=== PATIENT | male | born 1965 | race Caucasian/White ===

== ENCOUNTER 2018-05-27 07:22 | Day surgery (SDC) | payer OTHER ==
[~2018-05-27] VITALS: Ht 172.7 cm; Wt 93.0 kg
[2018-05-27] MEDS ORDERED: PREVACID 24HR15 MG PO (07:39)
--- NOTE | 2018-05-27 09:20 | NUR ---
05/27/18 0920 Julianne Santos 0907-PATIENT ARRIVED TO PACU ON 2L NC AWAKE DROWSY DENIES PAIN OR NAUSEA. LAYING LEFT LATERAL. ABDOMEN SOFT. 0920-PATIENT AWAKE DROWSY TOLERATING SIPS OF WATER. DENIES PAIN OR NAUSEA.
--- NOTE | 2018-05-27 16:51 | OR ---
[facility] [address] [place], [place] [address] Signed DATE OF OPERATION: 05/27/2018 SURGEON: Anitha Villatoro MD PREOPERATIVE DIAGNOSIS: Screening. POSTOPERATIVE DIAGNOSIS: Minimal to moderate internal hemorrhoids. PROCEDURE PERFORMED: Colonoscopy without biopsy. ESTIMATED BLOOD LOSS: None. INDICATIONS: Qamar is a 52-year-old gentleman, asked to see me for his initial screening colonoscopy. He has a family history of colon cancer or polyps. He describes some mild pruritus ani. Otherwise, no lower GI complaints. I met with Qamar in the office and we reviewed that in detail. I went over pruritus ani with him. We also reviewed colonoscopy in detail. He understands the nature of the test along with the risks including, but not limited to gas bloating, crampy abdominal pain, bleeding, perforation, requiring surgery, and missed diagnosis. We also reviewed the need for IV conscious sedation. He has expressed understanding and would like to proceed. PROCEDURE NOTE: Qamar was taken into our endoscopy suite and placed in the left lateral decubitus position. He was given IV sedation with 7 mg of Versed and 100 mcg of fentanyl. A digital rectal exam was performed. He has several small external anal skin tags. He has good sphincter tone. The skin is a little pale consistent with pruritus ani. His prostate gland is not particularly enlarged, but it is just a little bit indurated. It is very mild. The adult colonoscope was introduced and advanced all around into the cecum under direct visualization of camera without difficulty. His prep was excellent. The scope was then slowly withdrawn. We saw no pathology throughout the entire colon or rectum. Upon retroflexion of scope, he has minimal to moderate internal hemorrhoids. After this, the gas was suctioned out and the colonoscope removed. Qamar tolerated the procedure quite well. RECOMMENDATIONS: Electronically Signed By: ANITHA VILLATORO MD 05/27/18 1651 PATIENT NAME: FAISAL III,FOOTE MARIBEL OPERATIVE REPORT DATE OF : 69 REPORT #: [id number] PHYSICIAN: ANITHA VILLATORO MD PCP: AYO CATALAN MD REPORT IS CONFIDENTIAL AND NOT TO BE RELEASED WITHOUT AUTHORIZATION [facility] [address] [place], [place] [address] Signed I will see Foote back in my office in 10 years for repeat colonoscopy. Anitha Villatoro MD ALB/MODL /[id number] cc: MD Anitha Nguyen MD Copies: AYO CATALAN MD, ANDREW L MD ~ Electronically Signed By: ANITHA VILLATORO MD 05/27/18 1651 PATIENT NAME: QAMAR MALONE III OPERATIVE REPORT DATE OF : 69 REPORT #: [id number] PHYSICIAN: ANITHA VILLATORO MD PCP: AYO CATALAN MD REPORT IS CONFIDENTIAL AND NOT TO BE RELEASED WITHOUT AUTHORIZATION
== END 2018-05-27 09:51 | disposition home or self-care (01) ==
LOC: OPS 07:22 → DS 07:22 → OPS 09:00 → DS 09:00 → OPS 09:51
PROVIDERS: Colon & Rectal Surgery
PROC: 0DJD8ZZ Inspection of Lower Intestinal Tract, Via Natural or Artificial Opening Endoscopic (ICD-10-PCS; principal; 2018-05-27 09:00)
DX: Z12.11 Encounter for screening for malignant neoplasm of colon (principal); K64.8 Other hemorrhoids; K64.4 Residual hemorrhoidal skin tags; I10 Essential (primary) hypertension; G47.30 Sleep apnea, unspecified; Z79.899 Other long term (current) drug therapy
CPT/HCPCS: G0500; J2250; J3010; J7120

== ENCOUNTER 2019-07-10 17:14 | Emergency (ER) | payer OTHER ==
[~2019-07-10] VITALS: Ht 172.7 cm; Wt 93.0 kg
[~2019-07-10 17:14] MED LIST: PREVACID 24HR15 MG PO
[2019-07-10] MEDS ORDERED: ONDANSETRON ODT8 MG PO (18:59)
== END 2019-07-10 19:05 | disposition home or self-care (01) ==
LOC: ED 17:14
DX: S06.0X1A Concussion with loss of consciousness of 30 minutes or less, initial encounter (principal); S01.01XA Laceration without foreign body of scalp, initial encounter; W18.30XA Fall on same level, unspecified, initial encounter
CPT/HCPCS: 70450; 90471; 90715; 99284-25

== ENCOUNTER 2021-04-06 06:15 | Day surgery (SDC) | payer OTHER ==
[~2021-04-06] VITALS: Ht 172.7 cm; Wt 93.2 kg
[~2021-04-06 06:15] MED LIST changes: +BRAIN MIGHT-DH1 EACH PO; +DORZOLAMIDE-TIM10 ML; +FISH OIL 1,0001 EAC8 PO; +GLUCOSAMINE CO1 EACH PO; +K-TAB ER20 MEQ PO; +LISINOPRIL-HCT1 EACH PO; +LUCENTIS0.3 MG/0.1 IO; +ONDANSETRON ODT8 MG PO; +OSTERA TABLET1 EACH PO; +PAN-C 500 TABL1 EACH PO; +TURMERIC 450-51 EACH PO; +VITAMIN E OIL-V52 M1 TOP
--- NOTE | 2021-04-06 08:46 | NUR ---
04/06/21 0846 Josselyn Barr 0895 PATIENT ARRIVES TO PACU AWAKE OFF/ON, BUT VERY DROWSY. RESP EVEN AND UNLABORED, MASK AT 6 LITERS. SLEEPING WHEN NOT STIMULATED.
[2021-04-06] MEDS ORDERED: ACETAMINOPHEN500 MG PO (09:10)
[2021-04-06] MEDS ORDERED: OXYCODON-ACETA1 EAC2 PO (09:10)
[2021-04-06] MEDS ORDERED: IBUPROFEN600 MG PO (09:10)
--- NOTE | 2021-04-06 10:32 | NUR ---
7921 PT BACK TO ROOM FROM PACU AWAKE AND ALERT DENIES PAIN, PT EATING CRACKERS AND DRINKING WATER TOLERATES WELL. PT HAS SMALL AMOUMT OF SHADOWING ON THE BOTTON OF DRESSING.
--- NOTE | 2021-04-06 10:37 | NUR ---
1020 PT UP TO BATHROOM HE WAS ABLE TO VOID A LARGE AMOUNT OF YELLOW CLEAR URINE. PT WAS ABLE TO AMBULATE WITHOUT ASSIST. PT REPORTS HE FEELS READY TO GO HOME. IV DC'D BY SYSTEM SUPPORT DEVELOPER MIRI Salmeron
--- NOTE | 2021-04-06 10:42 | NUR ---
1025 NOTED BLOOD ON DRESSING PT WAS LEAVING MARKED DRESSING AND ADVISED PT TO WATCH FOR BLEEDING PAST CHITO AND TO CALL DR DURANT DRESSING GOT SATURATED. PT VOICED UNDERSTANDING.
--- NOTE | 2021-04-06 11:03 | NUR ---
PT ALERT, ORIENTED AND SEEMS RELAXED. ALL QUESTIONS ASKED, ANSWERED. PT'S DAD WILL PICKUP FOLLOWING DC.PT REQUESTED PRAYER, WILL CONTINUE TO FOLLOW
--- NOTE | 2021-04-06 11:54 | NUR ---
1150 PT CALLED AND SPOKE WITH RN AND WAS TOLD TO COME BACK DUE TO BLEEDING AT SURGICAL SITE. HALF THE DRESSING IS SATURATED AND BLOOD IS POOLED INSIDE OPSITE DR DURANT WAS INFORMED HE WILL SEE PT AFTER HIS CURRENT PROCEDURE
--- NOTE | 2021-04-06 12:52 | EKG ---
[facility] [address] [facility] [place], [place] [address] Signed Sinus bradycardia with 1st degree AV block Otherwise normal ECG No previous ECGs available Confirmed by JUMANA RUBI DO ([id number]) on 04/06/2021 12:52:07 PM Electronically Signed By: UJMANA RUBI DO 04/06/21 1252 PATIENT NAME: [facility] Electrocardiogram DATE OF : 69 PHYSICIAN: JUMANA RUBI DO REPORT #: [id number] REPORT IS CONFIDENTIAL AND NOT TO BE RELEASED WITHOUT AUTHORIZATION
--- NOTE | 2021-04-06 12:57 | NUR ---
1230 DR DURANT EVALUATED PT, OLD DRESSING WAS REMOVED PRESSURE WAS HELD TO AMBILICUS FOR 20 MIN. NEW DRESSING OF ACTICOAT WAS APPLIED AND GUAZE AND TAPE OVER ACTICOAT. PRESSURE WAS APPLIED FOR ANOTHER 15 MIN. DRESSING WAS CLEAN AND DRY. ABD BINDER WAS PLACED AROUND ABD. PT WAS WHEELED OUT TO CAR BY NURSE.
--- NOTE | 2021-04-08 15:47 | OR ---
[facility] [address] [place], [place] [address] Signed DATE OF OPERATION: 04/06/2021 SURGEON: Mahendra Durant MD PREOPERATIVE DIAGNOSIS: Episodically painful umbilical hernia. POSTOPERATIVE DIAGNOSIS: Incarcerated umbilical hernia (properitoneal fat). PROCEDURE: Repair of incarcerated umbilical hernia including implantation of Prolene mesh in underlay technique and reapproximation of fascia. ANESTHESIA: General endotracheal, Ez Jaramillo CRNA and local 10 mL of 0.25% Marcaine with epinephrine. INDICATION: This 55-year-old white man is a patient of ELVIS Harris and here for repair of umbilical hernia. He has noted swelling and a bulge at the umbilical area. He has never had incision in the area. It is uncomfortable and a bulky lump had been noted by him. Examination shows an obvious hernia which generally reduces but not completely so on full examination. There is no erythema. He is admitted at this time to undergo repair of the umbilical hernia. He understands the risks of bleeding, infection, recurrence and so on. FINDINGS: The fascial defect was approximately 2-3 cm. The properitoneal fat was herniated and incarcerated. It was ultimately reduced fully. Implantation of Prolene mesh in the properitoneal space was undertaken with overlap of the fascial defect of approximately 4 cm. Transverse fascial closure was undertaken, additionally supported with Prolene pledgets. DESCRIPTION OF PROCEDURE: The patient was brought to the operating room and given a general endotracheal anesthetic. The abdomen was clipped and prepared with a chlorhexidine solution. Preoperative antibiotic Ancef was given. Sequential compression device stockings were used and heparin subcutaneously administered. A curvilinear incision was made to the left of the umbilicus and the umbilical skin fold. Dissection carried through the Electronically Signed By: MAHENDRA DURANT MD 04/08/21 1547 PATIENT NAME: ALYSSA MALONE III OPERATIVE REPORT DATE OF : 69 REPORT #: [id number] PHYSICIAN: MAHENDRA DURANT MD PCP: MELO CAMPOS PAC REPORT IS CONFIDENTIAL AND NOT TO BE RELEASED WITHOUT AUTHORIZATION [facility] [address] [place], [place] [address] Signed dermis with sharp and electrocautery dissection. The herniated properitoneal fat which was densely adherent to the underlying dermis was freed and noted to be nonreducible initially. The fascial edge was more fully dissected free with electrocautery and ultimately the incarcerated properitoneal fat reduced to the properitoneal space. Circumferential dissection of the properitoneal space was undertaken ultimately allowing for placement of the index finger circumferentially at approximately 4 cm in length. A segment of Prolene mesh was cut to a circular configuration and placed in the properitoneal space and secured with interrupted 0 Prolene sutures. The fascia was transversely reapproximated with interrupted horizontal mattress of Prolene suture as well. A 10 mL of 0.25% Marcaine was injected locally. Subcutaneous layers were reapproximated with interrupted 2-0 Vicryl and skin closed with a running subcuticular 3-0 Vicryl. Steri-Strips were applied as was Acticoat dressing. Upon withdrawal of anesthesia, the patient had a fair amount of straining and coughing, although abdominal wall stabilization was undertaken, I could feel sutures popping free. On that basis, he was re-anesthetized. The wound opened and the fascial closure had disrupted, though the Prolene mesh was in the appropriate position. The fascia was then reapproximated with interrupted 0 Prolene sutures with Prolene pledgets and the subcutaneous tissue and skin closed once again with 3-0 Vicryl. Steri-Strips were applied and active dressing reapplied. The patient had transitioned over to an LMA type anesthetic and had no coughing or straining upon withdrawal of his anesthetic and no further issue of concern. He tolerated the procedure well. BLOOD LOSS: Minimal. COMPLICATIONS: None. MD KIRT Antunez/GEML /[id number] cc: ELVIS Harris Electronically Signed By: MAHENRDA DURANT MD 04/08/21 1547 PATIENT NAME: [facility] OPERATIVE REPORT DATE OF : 69 REPORT #: [id number] PHYSICIAN: MAHENDRA DURANT MD PCP: MELO CAMPOS PAC REPORT IS CONFIDENTIAL AND NOT TO BE RELEASED WITHOUT AUTHORIZATION [facility] [address] [place] [address] [place] [address] Signed Copies: ~ Electronically Signed By: MAHENDRA DURANT MD 04/08/21 1547 PATIENT NAME: FAISALALYSSA MARIBEL III OPERATIVE REPORT DATE OF : 69 REPORT #: [id number] PHYSICIAN: MAHENDRA DURANT MD PCP: MELO CAMPOS PAC REPORT IS CONFIDENTIAL AND NOT TO BE RELEASED WITHOUT AUTHORIZATION
== END 2021-04-06 10:30 | disposition home or self-care (01) ==
LOC: DS 06:15
PROVIDERS: ATTEND Surgery
PROC: 0WUF0JZ Supplement Abdominal Wall with Synthetic Substitute, Open Approach (ICD-10-PCS; principal; 2021-04-06 06:45)
DX: K42.0 Umbilical hernia with obstruction, without gangrene (principal); I10 Essential (primary) hypertension; H34.8192 Central retinal vein occlusion, unspecified eye, stable; Z87.820 Personal history of traumatic brain injury
CPT/HCPCS: 00750; 93005; 93010; C1781; J0131; J0690; J1100; J1644; J1885; J2001; J2405; J2704; J3010; J7121